=== PATIENT | female | born 1980 | race Asian ===

== ENCOUNTER 2017-01-12 16:19 | Emergency (ER) | payer OTHER ==
[2017-01-12 16:47] VITALS: BP 129/85
[2017-01-12] MEDS ORDERED: PENICILLIN G BENZATHINE LA 1,200,000 UNIT/2 ML DISP.SYRIN. IM ONE (17:45)
--- NOTE | 2017-01-12 17:48 | PHYS DOC ---
Past Medical History Past Medical History: No Pertinent History Past Surgical History: Other Additional Past Surgical Histo: IUD Additional Information: Nonsmoker Alcohol Use: None Drug Use: None Adult General Chief Complaint Chief Complaint: FEVER HPI HPI Patient is a 36 year old female who presents with subjective fever, chills, body aches, and sore throat for 2 days. She also has a mild cough. She denies shortness of breath, nasal congestion, ear pain, vomiting, diarrhea, or urinary symptoms. She has not taken any antipyretics today. She does not have a PCP. The patient speaks Egyptian. History and physical exam were performed with the assistance of Egyptian language line pan pusher #[id number]. Review of Systems Review of Systems Constitutional: Reports subjective fever and chills. Eyes: Denies change in visual acuity, redness, or eye pain. [] HENT: Denies ear pain, nasal congestion. Reports sore throat. Respiratory: Denies shortness of breath. Reports cough. Cardiovascular: Denies chest pain, palpitations or edema. [] GI: Denies abdominal pain, nausea, vomiting, bloody stools or diarrhea. [] : Denies dysuria, hematuria or urinary frequency. [] Musculoskeletal: Denies back pain or joint pain. Reports diffuse body aches. Integument: Denies rash or skin lesions. [] Neurologic: Denies headache, focal weakness or sensory changes. [] Endocrine: Denies polyuria or polydipsia. [] Psych: Denies anxiety or depression. [] All systems reviewed and negative unless otherwise stated in the HPI. Current Medications Current Medications Current Medications Medications (Trade) Dose Ordered Sig/[facility] Start Time Stop Time Status Last Admin Dose Admin Penicillin G Benzathine (Bicillin L-A) 1,200,000 unit 1X ONCE 01/12/17 17:45 01/12/17 17:46 Allergies Allergies Allergies Coded Allergies Type Severity Reaction Last Updated Verified No Known Drug Allergies 01/12/17 No Physical Exam Physical Exam Constitutional: Well developed, well nourished, no acute distress, non-toxic appearance. [] HENT: Normocephalic, atraumatic, bilateral external ears normal, oropharynx moist, no oral exudates, nose normal. Bilateral TMs without erythema or bulging. There is posterior pharyngeal erythema with bilateral tonsillar edema and exudates. There is no peritonsillar abscess or uvular deviation. Eyes: PERRLA, EOMI, conjunctiva normal, no discharge. [] Neck: Normal range of motion, no tenderness, supple, no stridor. [] Cardiovascular: Heart rate regular rhythm, no murmur [] Lungs & Thorax: Bilateral breath sounds clear to auscultation without wheezes, rales, or rhonchi. Skin: Warm, dry, no erythema, no rash. [] Neurologic: Alert and oriented X 3, normal motor function, normal sensory function, no focal deficits noted. [] Psychologic: Affect normal, judgement normal, mood normal. [] Current Patient Data Vital Signs Vital Signs Date Time Temp Pulse Resp B/P Pulse Ox O2 Delivery O2 Flow Rate FiO2 01/12/17 16:47 99.5 117 20 99 Room Air 99.5 Lab Values Rapid strep positive EKG EKG [] Radiology/Procedures Radiology/Procedures [] Course & Med Decision Making Course & Med Decision Making Pertinent Labs and Imaging studies reviewed. (See chart for details) The patient was given IM Bicillin LA in the emergency department for treatment of her strep throat. Dragon Disclaimer Dragon Disclaimer This electronic medical record was generated, in whole or in part, using a voice recognition dictation system. Departure Departure Impression: Primary Impression: Strep throat Disposition: 01 HOME, SELF-CARE Condition: STABLE Referrals: NO PCP (PCP) Patient Instructions: Strep Throat, [id number] Additional Instructions: Your test for strep throat was positive. You were given a shot of antibiotics in the emergency department. You should not require any additional antibiotics for your strep throat. Please take Tylenol and ibuprofen for fever and pain control. You may take Tylenol every 6 hours. You may take ibuprofen every 6 hours. If you alternate them, you may take one or the other every 3 hours. Please drink lots of water to stay hydrated and get plenty of rest. Please follow-up with your primary care doctor if your symptoms continue. Return to the emergency department if you have high fever not responding to medication, difficulty breathing, difficulty swallowing, or other new or concerning symptoms. AYANNA MCDONOUGH Jan 12, 2017 17:48
[2017-01-12 18:09] LABS: OBC FLU VALID
[2017-01-13 09:40] LABS: NEGATIVE OBC STREP NEG
[2017-01-13 09:41] LABS: POSITIVE OBC STREP POS
== END 2017-01-12 18:08 | disposition home or self-care (01) ==
LOC: ER 16:19
DX: J02.0 Streptococcal pharyngitis (principal)
CPT/HCPCS: 87804; 87880; 96372; 99284; J0561

== ENCOUNTER 2017-02-25 12:58 | Emergency (ER) | payer OTHER ==
[~2017-02-25] VITALS: Ht 149.9 cm; Wt 49.9 kg
[2017-02-25 13:00] VITALS: BP 132/87
[2017-02-25] MEDS ORDERED: predniSONE 20 MG TABLET PO ONE (13:45)
[2017-02-25] MEDS ORDERED: FAMOTIDINE 20 MG TABLET. PO ONE (13:45)
[2017-02-25] MEDS ORDERED: diphenhydrAMINE HCL 25 MG CAPSULE PO ONE (13:45)
[2017-02-25] MEDS ORDERED: DIPH25CA58 PO (14:09)
[2017-02-25] MEDS ORDERED: FAMO-63 PO (14:09)
[2017-02-25] MEDS ORDERED: PRED-220 PO (14:09)
[2017-02-25] MEDS ORDERED: TRIA15CR3 TP (14:09)
--- NOTE | 2017-02-25 14:10 | PHYS DOC ---
Past Medical History Past Medical History: No Pertinent History Past Surgical History: Other Additional Past Surgical Histo: IUD Alcohol Use: None Drug Use: None Adult General Chief Complaint Chief Complaint: SKIN PROBLEM HPI HPI Patient is a 36 year old eye rash throughout her body that began 6 days ago. Patient denies any new soaps or laundry detergents or any source for this rash. Wheel Lacer [employer] Truer line was used for her local language. Review of Systems Review of Systems Constitutional: Denies fever or chills [] Eyes: Denies change in visual acuity, redness, or eye pain [] Musculoskeletal: Denies back pain or joint pain [] Integument: rash Neurologic: Denies headache, focal weakness or sensory changes [] Endocrine: Denies polyuria or polydipsia [] Current Medications Current Medications Current Medications Medications (Trade) Dose Ordered Sig/Cj Start Time Stop Time Status Last Admin Dose Admin Diphenhydramine HCl (Benadryl) 25 mg 1X ONCE 02/25/17 13:45 02/25/17 13:46 DC 02/25/17 13:33 25 MG Famotidine (Pepcid) 20 mg 1X ONCE 02/25/17 13:45 02/25/17 13:46 DC 02/25/17 13:33 20 MG Prednisone (Prednisone) 60 mg 1X ONCE 02/25/17 13:45 02/25/17 13:46 DC 02/25/17 13:33 60 MG Allergies Allergies Allergies Coded Allergies Type Severity Reaction Last Updated Verified No Known Drug Allergies 01/12/17 No Physical Exam Physical Exam Constitutional: Well developed, well nourished, no acute distress, non-toxic appearance. [] HENT: Normocephalic, atraumatic, bilateral external ears normal, oropharynx moist, no oral exudates, nose normal. [] Skin: Moderate amount of erythematous papular rash on her face, mild amount of erythematous papular rash on her chest. Mild amount of the same rash on her bilateral upper extremities. Back: No tenderness, no CVA tenderness. [] Extremities: No tenderness, no cyanosis, no clubbing, ROM intact, no edema. [] Neurologic: Alert and oriented X 3, normal motor function, normal sensory function, no focal deficits noted. [] Psychologic: Affect normal, judgement normal, mood normal. [] Current Patient Data Vital Signs Vital Signs Date Time Temp Pulse Resp B/P (MAP) Pulse Ox O2 Delivery O2 Flow Rate FiO2 02/25/17 13:00 98.0 76 18 97 Room Air 98.0 EKG EKG [] Radiology/Procedures Radiology/Procedures [] Course & Med Decision Making Course & Med Decision Making Pertinent Labs and Imaging studies reviewed. (See chart for details) Patient has contact dermatitis rash from unknown cause. Discharged with tapered dose of prednisone, Benadryl, Pepcid and triamcinolone cream. Follow-up with her PCP in 2 weeks. Dragon Disclaimer Dragon Disclaimer This electronic medical record was generated, in whole or in part, using a voice recognition dictation system. Departure Departure Impression: Primary Impression: Contact dermatitis Disposition: HOME, SELF-CARE Condition: STABLE Referrals: NO PCP (PCP) Follow-up with your own doctor in 2 weeks PRATIK BRUCE MD Follow-up with the provided exterminator helper termite in 2 weeks as needed Patient Instructions: Contact Dermatitis, [id number] Additional Instructions: You were seen for contact dermatitis rash. Use the prescribed medicines as ordered. Follow-up with your doctor in 2 weeks. Scripts Famotidine (PEPCID) 20 Mg Tablet 20 MG PO DAILY, #14 TAB Prov: FREDA YUAN APRN 02/25/17 Diphenhydramine Hcl (BENADRYL) 25 Mg Capsule 1 CAP PO Q4-6HRS Y for RASH, #30 CAP 1 Refill Prov: FREDA YUAN APRN 02/25/17 Prednisone (PREDNISONE) 10 Mg Tablet 10 MG PO UD for PREDNISONE TAPER, #39 TAB 0 Refills Take 3 tablets by mouth twice a day for 3 days, then take 2 tablets by mouth twice a day for 3 days, then take 1 tablet by mouth twice a day for 3 days, then take 1 tablet by mouth daily x 3 days, then stop. Prov: FREDA YUAN APRN 02/25/17 Triamcinolone Acetonide (TRIAMCINOLONE ACETONIDE 0.1% CREAM) 15 Gm Cream..g. 1 GRAHAM TP BID, #1 TUBE Prov: FREDA YUAN APRN 02/25/17 Problem Qualifiers Primary Impression: Contact dermatitis Contact dermatitis type: unspecified Contact dermatitis trigger: unspecified trigger Qualified Codes: L25.9 - Unspecified contact dermatitis, unspecified cause FREDA YUAN APRN Feb 25, 2017 14:10
== END 2017-02-25 14:15 | disposition home or self-care (01) ==
LOC: ER 12:58
DX: L25.9 Unspecified contact dermatitis, unspecified cause (principal)
CPT/HCPCS: 99284; J7512; Q0163